=== PATIENT | male | born 1990 | race Hispanic/Latino ===

== ENCOUNTER 2020-01-16 15:57 | Outpatient (CLI) | payer OTHER, SELFPAY ==
--- NOTE | ~2020-01-16 | XR_ITS ---
EXAMINATION: XR lumbar spine 2-3V DATE: 01/16/2020 16:13 INDICATION: Sciatica TECHNIQUE: Anteroposterior and lateral views of the lumbar spine, and cone-down lateral view of the l umbosacral junction were obtained. COMPARISON: CT, 03/15/2013 FINDINGS: There are 3 mm of retrolisthesis of L5 on S1 with mild chronic loss of intervertebral disc space height at L5-S1. The vertebral body heights are maintained. There is no fracture. Small degener ative osteophytes project from the anterior endplates of multiple vertebral bodies. The bowel gas pat tern is normal. IMPRESSION: 1. Mild lumbar spondylosis without acute findings. Reviewed, dictated and finalized at location A.
== END 2020-01-16 15:58 | disposition home or self-care (01) ==
PROVIDERS: PCP Family Medicine; Visit Provider Family Medicine
DX: K45.8 Other specified abdominal hernia without obstruction or gangrene (principal); M47.816 Spondylosis without myelopathy or radiculopathy, lumbar region
CPT/HCPCS: 72100